=== PATIENT | male | born 2000 | race African-American/Black ===

== ENCOUNTER 2025-01-05 10:13 | Emergency (ER) | payer OTHER ==
[~2025-01-05] VITALS: Ht 182.9 cm; Wt 62.7 kg
[2025-01-05] MEDS: IBUPROFEN 600 MG TABLET PO ONE (11:38)
[2025-01-05 11:47] VITALS: BP 110/56; PULSE 48; RESP 14; TEMP 98; O2SAT 99
== END 2025-01-05 12:40 | disposition home or self-care (01) ==
LOC: EMS 10:21
DX: M25.561 Pain in right knee (principal); X58.XXXA Exposure to other specified factors, initial encounter; Y93.66 Activity, soccer; Y92.322 Soccer field as the place of occurrence of the external cause; Y99.8 Other external cause status
CPT/HCPCS: 99283